=== PATIENT | female | born 1965 | race Two or more races ===

== ENCOUNTER 2018-06-04 19:19 | Emergency (ER) | payer OTHER ==
[~2018-06-04] VITALS: Ht 165.1 cm; Wt 72.6 kg
[2018-06-04] MEDS ORDERED: WELLBUTRIN XL300 MG (19:57)
== END 2018-06-05 01:30 ==
LOC: ER 19:19
DX: R07.89 Other chest pain (principal)

== ENCOUNTER 2020-10-13 14:17 | Outpatient (CLI) | payer OTHER ==
[~2020-10-13 14:17] MED LIST: WELLBUTRIN XL300 MG
== END 2020-10-13 14:28 | disposition home or self-care (01) ==
LOC: RAD 14:17
DX: S92.201A Fracture of unspecified tarsal bone(s) of right foot, initial encounter for closed fracture (principal)

== ENCOUNTER 2020-10-30 10:37 | Outpatient (CLI) | payer OTHER | END 2020-10-30 10:55 | disposition home or self-care (01) | LOC: RAD 10:37 → MAMO-SONO 10:37 | PROVIDERS: ATTEND Internal Medicine Pulmonary Disease | DX: Z12.31 Encounter for screening mammogram for malignant neoplasm of breast (principal); N64.89 Other specified disorders of breast; N63.0 Unspecified lump in unspecified breast ==

== ENCOUNTER 2021-11-15 11:01 | Outpatient (CLI) | payer OTHER | END 2021-11-15 11:13 | disposition home or self-care (01) | LOC: MAMO-SONO 11:01 | PROVIDERS: ATTEND Obstetrics & Gynecology | DX: N60.11 Diffuse cystic mastopathy of right breast (principal); N60.12 Diffuse cystic mastopathy of left breast; Z12.31 Encounter for screening mammogram for malignant neoplasm of breast ==

== ENCOUNTER 2021-12-13 09:56 | Outpatient (CLI) | payer OTHER | END 2021-12-13 10:12 | disposition home or self-care (01) | LOC: RAD 09:56 | PROVIDERS: ATTEND Physical Medicine & Rehabilitation | DX: M16.0 Bilateral primary osteoarthritis of hip (principal) ==

== ENCOUNTER 2021-12-20 09:06 | Outpatient (CLI) | payer OTHER | END 2021-12-20 09:07 | disposition home or self-care (01) | LOC: NUCLEAR 09:06 | PROVIDERS: ATTEND Physical Medicine & Rehabilitation | DX: M81.0 Age-related osteoporosis without current pathological fracture (principal) ==

== ENCOUNTER 2021-12-21 16:14 | Outpatient (CLI) | payer OTHER | END 2021-12-21 16:21 | disposition home or self-care (01) | LOC: RAD 16:14 | PROVIDERS: ATTEND Internal Medicine Rheumatology | DX: M15.1 Heberden's nodes (with arthropathy) (principal) ==

== ENCOUNTER 2022-03-18 09:57 | Outpatient (CLI) | payer OTHER | END 2022-03-18 10:20 | disposition home or self-care (01) | LOC: RAD 09:57 | DX: J10.1 Influenza due to other identified influenza virus with other respiratory manifestations (principal); J11.1 Influenza due to unidentified influenza virus with other respiratory manifestations ==

== ENCOUNTER 2022-04-15 08:28 | Outpatient (CLI) | payer OTHER | END 2022-04-15 08:40 | disposition home or self-care (01) | LOC: RAD 08:28 | PROVIDERS: ATTEND Orthopaedic Surgery Adult Reconstructive Orthopaedic Surgery | DX: I11.9 Hypertensive heart disease without heart failure (principal) ==

== ENCOUNTER 2022-08-29 08:39 | Outpatient (CLI) | payer OTHER | END 2022-08-29 08:44 | disposition home or self-care (01) | LOC: RAD 08:39 | PROVIDERS: ATTEND Orthopaedic Surgery Adult Reconstructive Orthopaedic Surgery | DX: Z96.642 Presence of left artificial hip joint (principal) ==

== ENCOUNTER 2023-09-26 10:37 | Outpatient (CLI) | payer OTHER | END 2023-09-26 10:45 | disposition home or self-care (01) | LOC: RAD 10:37 | DX: M16.11 Unilateral primary osteoarthritis, right hip (principal) ==

== ENCOUNTER 2023-12-29 12:35 | Outpatient (CLI) | payer OTHER | END 2023-12-29 12:41 | disposition home or self-care (01) | LOC: NUCLEAR 12:35 | PROVIDERS: ATTEND Internal Medicine Rheumatology | DX: M81.0 Age-related osteoporosis without current pathological fracture (principal) ==

== ENCOUNTER 2024-08-22 15:19 | Outpatient (CLI) | payer OTHER | END 2024-08-22 15:22 | disposition home or self-care (01) | LOC: RAD 15:19 | DX: Z90.2 Acquired absence of lung [part of] (principal) ==

== ENCOUNTER 2025-06-09 13:06 | Outpatient (CLI) | payer OTHER | END 2025-06-09 13:09 | disposition home or self-care (01) | LOC: RAD 13:06 | DX: K29.00 Acute gastritis without bleeding (principal) ==